=== PATIENT | female | born 1940 | race Native Hawaiian/Other Pacific Islander ===

== ENCOUNTER 2016-10-02 11:45 | Observation (INO) | payer OTHER, BC ==
[~2016-10-02] VITALS: Ht 154.9 cm; Wt 62.6 kg
[~2016-10-02 11:45] MED LIST: AMLO2.5T PO; ASA LOW DOSE81 MG PO; BENICAR HCT1 TA2 PO; BYSTOLIC5 MG PO; CALCIUM600 M1 PO; CENTRUM SILVER ULTRA PO; LIPITOR40 MG PO; PRAS5TAB PO; SIMV40TA57 PO; TEMA15CA19 PO; VALS160T PO
[2016-10-02 14:22] LABS: PLATELET COUNT 398 K/uL (152-353)
[2016-10-02 14:43] LABS: PARTIAL THROMBOPLASTIN TIME 28.1 SECONDS (24.5-33.6)
[2016-10-02 14:47] LABS: POTASSIUM 3.8 mmol/L (3.6-5.2)
[2016-10-02 14:57] VITALS: BP 121/43; TEMP 97.6; Ht 154.9 cm; Wt 62.6 kg
[2016-10-02 16:00] VITALS: BP 118/44; TEMP 98.5
[2016-10-02 18:56] VITALS: BP 129/49; TEMP 98.3
[2016-10-02] MEDS ORDERED: AMLO2.5T PO (19:17)
[2016-10-03 00:17] VITALS: BP 90/40; TEMP 98.3
[2016-10-03 04:00] VITALS: BP 90/44; TEMP 98.5
[2016-10-03 04:31] LABS: PLATELET COUNT 308 K/uL (152-353)
[2016-10-03 05:00] LABS: POTASSIUM 3.4 mmol/L (3.6-5.2); SODIUM 137 mmol/L (136-145)
[2016-10-03 08:00] VITALS: BP 122/60; TEMP 98.4
[2016-10-03 12:00] VITALS: BP 135/45; TEMP 98.8
[2016-10-03 16:00] VITALS: BP 140/59; TEMP 97.7
[2016-10-03 20:24] VITALS: BP 135/46; TEMP 98
[2016-10-04 00:27] VITALS: BP 106/32; TEMP 98.3
[2016-10-04 04:00] VITALS: BP 116/36; TEMP 98
[2016-10-04 06:28] LABS: PLATELET COUNT 344 K/uL (152-353)
[2016-10-04 08:00] VITALS: BP 135/45; TEMP 98.1
[2016-10-04 08:10] LABS: POTASSIUM 3.4 mmol/L (3.6-5.2); SODIUM 138 mmol/L (136-145)
[2016-10-04 11:08] VITALS: BP 130/42; TEMP 98.4
== END 2016-10-04 16:26 | disposition home or self-care (01) ==
LOC: MED/SURG 11:45
PROVIDERS: ADMIT Family Medicine
DX: K52.89 Other specified noninfective gastroenteritis and colitis (principal); R19.7 Diarrhea, unspecified; E86.0 Dehydration; K57.30 Diverticulosis of large intestine without perforation or abscess without bleeding; K43.9 Ventral hernia without obstruction or gangrene; R10.9 Unspecified abdominal pain
CPT/HCPCS: 36415; 36591; 80048; 80053; 81000; 82272; 82550; 82553; 83880; 84484; 85027; 85610; 85730; 87045; 87088; 87205; 87328; 87329; 87493; 87798; 87899; 93005; 94760; 96365; 96366; 96372; 99220; G0378; G0379; J1650; Q9963

== ENCOUNTER 2016-11-11 10:30 | Outpatient (CLI) | payer OTHER, BC | END 2016-11-11 11:30 | disposition home or self-care (01) | LOC: MAMMO 10:30 | DX: Z12.31 Encounter for screening mammogram for malignant neoplasm of breast (principal) | CPT/HCPCS: G0202-TC ==

== ENCOUNTER 2017-09-20 08:50 | Inpatient (IN) | payer OTHER, BC ==
[~2017-09-20] VITALS: Ht 154.9 cm; Wt 65.8 kg
[2017-09-20 09:37] LABS: PLATELET COUNT 269 K/uL (152-353)
[2017-09-20 09:48] LABS: POTASSIUM 3.5 mmol/L (3.6-5.2)
[2017-09-20 20:38] VITALS: BP 122/47; TEMP 97.8; Ht 154.9 cm; Wt 65.8 kg
[2017-09-21] VITALS: BP 120/46; TEMP 98.4
[2017-09-21 03:46] LABS: PLATELET COUNT 253 K/uL (152-353)
[2017-09-21 04:00] VITALS: BP 122/42; TEMP 98.7
[2017-09-21 04:06] LABS: POTASSIUM 4.5 mmol/L (3.6-5.2); SODIUM 132 mmol/L (136-145)
[2017-09-21 08:10] VITALS: BP 127/45; TEMP 98.4
[2017-09-21 11:56] VITALS: BP 103/45; TEMP 98.8
[2017-09-21 16:00] VITALS: BP 130/51; TEMP 100.1
[2017-09-21 20:00] VITALS: BP 122/52; TEMP 98.1
[2017-09-21 20:10] LABS: PLATELET COUNT 240 K/uL (152-353)
[2017-09-22] VITALS: BP 114/43; TEMP 98.9
[2017-09-22 04:00] VITALS: BP 123/53; TEMP 99.4
[2017-09-22 06:04] LABS: POTASSIUM 3.9 mmol/L (3.6-5.2)
[2017-09-22 07:52] VITALS: BP 123/56; TEMP 98.6
[2017-09-22 11:52] VITALS: BP 101/52; TEMP 98.4
[2017-09-22 16:00] VITALS: BP 156/60; TEMP 98.5
== END 2017-09-22 16:35 | disposition home or self-care (01) | DRG 354 ==
LOC: OR 08:50 → MED/SURG 15:00
PROVIDERS: ADMIT Student in an Organized Health Care Education/Training Program
PROC: 0WUF0JZ Supplement Abdominal Wall with Synthetic Substitute, Open Approach (ICD-10-PCS; principal; 2017-09-20)
DX: K43.2 Incisional hernia without obstruction or gangrene (principal); J98.11 Atelectasis; I10 Essential (primary) hypertension; E78.00 Pure hypercholesterolemia, unspecified; E86.0 Dehydration; D64.89 Other specified anemias; I25.10 Atherosclerotic heart disease of native coronary artery without angina pectoris; R73.9 Hyperglycemia, unspecified; K21.9 Gastro-esophageal reflux disease without esophagitis
CPT/HCPCS: 36415; 80048; 80053; 82550; 82553; 83735; 84484; 85027; 94760; 96365; 96366; 96372; C1713; C1729; J0330; J0690; J1100; J1170; J1644; J2001; J2250; J2270; J2405; J2704; J3010; J3490; S0028

== ENCOUNTER 2017-12-05 11:28 | Outpatient (CLI) | payer OTHER, BC | END 2017-12-05 21:49 | disposition home or self-care (01) | LOC: MAMMO 11:28 | DX: Z12.31 Encounter for screening mammogram for malignant neoplasm of breast (principal) ==

== ENCOUNTER 2018-09-12 12:46 | Observation (INO) | payer OTHER, BC ==
[~2018-09-12] VITALS: Ht 154.9 cm; Wt 58.3 kg
[2018-09-12 14:04] LABS: PLATELET COUNT 246 K/uL (152-353)
[2018-09-12 14:28] VITALS: BP 115/55; TEMP 97.9; Ht 154.9 cm; Wt 58.3 kg
[2018-09-12] MEDS ORDERED: LIPITOR40 MG PO (14:39)
[2018-09-12 16:06] VITALS: BP 141/53; TEMP 98.3
[2018-09-12 20:00] VITALS: BP 149/51; TEMP 98.1
[2018-09-13 00:15] VITALS: BP 100/50; TEMP 98.5
[2018-09-13 04:00] VITALS: BP 102/47; TEMP 98.8
[2018-09-13 06:02] LABS: PLATELET COUNT 226 K/uL (152-353)
[2018-09-13 06:28] LABS: POTASSIUM 3.2 mmol/L (3.6-5.2)
[2018-09-13 08:00] VITALS: BP 100/47; TEMP 98.2
[2018-09-13 09:24] LABS: PLATELET COUNT 237 K/uL (152-353)
[2018-09-13 09:42] LABS: POTASSIUM 2.6 mmol/L (3.6-5.2)
[2018-09-13 12:03] VITALS: BP 106/37; TEMP 98.6
[2018-09-13 16:24] VITALS: BP 101/37; TEMP 97.9
[2018-09-13 20:00] VITALS: TEMP 98.2
[2018-09-14] VITALS: BP 91/32; TEMP 98.3
[2018-09-14 03:51] VITALS: BP 90/33; TEMP 98.6
[2018-09-14 08:06] VITALS: BP 119/541; TEMP 98.2
[2018-09-14 10:45] LABS: PLATELET COUNT 269 K/uL (152-353)
[2018-09-14 12:05] VITALS: BP 143/55; TEMP 98.5
== END 2018-09-14 12:40 | disposition home or self-care (01) ==
LOC: MED/SURG 12:46
PROVIDERS: ADMIT Family Medicine
DX: J18.9 Pneumonia, unspecified organism (principal); E86.0 Dehydration; I95.1 Orthostatic hypotension; E87.6 Hypokalemia; I10 Essential (primary) hypertension; M19.90 Unspecified osteoarthritis, unspecified site; H91.93 Unspecified hearing loss, bilateral; R71.0 Precipitous drop in hematocrit
CPT/HCPCS: 36415; 80053; 82607; 82728; 82746; 83540; 83550; 83735; 83880; 84100; 84132; 85027; 87040; 87077; 87185; 87186; 87205; 87502; 93005; 94640; 94664; 94668; 94760; 96365; 96366; 96367; 99220; G0378; G0379; J0456; J0696; J3475; J3480

== ENCOUNTER 2019-07-31 10:20 | Outpatient (CLI) | payer OTHER, BC | END 2019-07-31 20:20 | disposition home or self-care (01) | LOC: RAD 10:20 | DX: M54.14 Radiculopathy, thoracic region (principal) ==

== ENCOUNTER 2020-12-02 20:59 | Observation (INO) | payer BC ==
[2020-12-02] VITALS (7 sets, daily range): BP systolic 107–135; BP diastolic 34–76; TEMP 98.5
[~2020-12-02] VITALS: Ht 154.9 cm; Wt 56.9 kg
[2020-12-02 21:55] LABS: PLATELET COUNT 328 K/uL (152-353); POTASSIUM 4.5 mmol/L (3.6-5.2)
[2020-12-03] VITALS (37 sets, daily range): BP systolic 91–153; BP diastolic 28–76; TEMP 97.6–99.8; Ht 154.9 cm; Wt 56.9 kg
--- NOTE | 2020-12-03 07:15 | NUR ---
PT WAS ADMITTED FROM ER . PT ADMITTED WITH ANEMIA. PT IS FULL CODE STATUS. PT STATES SHE IS EASED OF PAIN AT PRESENT. POSITIONED IN BED. CM WIH SINUS BRADYCARDIA. MONITORING BP. SPOKE WITH PT'S DAUGHTER CRISTINA AND REPORTED TO HER THAT PT DID SHAHRZAD DOWN TO 35 AFTER AMBULATING TO BED FROM BATHROOM. RATE WAS 35 BUT RECOVERED QUICKLY. ADMISSION ASSESSMENT COMPLETED.
--- NOTE | 2020-12-03 08:30 | NUR ---
PT'S CALLED TO SPEAK TO PT. PT
--- NOTE | 2020-12-03 09:23 | NUR ---
DR DENT AT BEDSIDE MAKING ROUNDS AND TALKING TO PT. PT VERBAL NO DISTRESS NOTED. PT VERBALZIED UNDERSTANDING OF NEEDING BLOOD AT THIS TIME AND AGREED TO HAVE 2 UNITS.
[2020-12-03] MEDS ORDERED: AMLODIPINE BESYLATE PO (09:30)
[2020-12-03] MEDS ORDERED: LIPITOR40 MG PO (09:32)
[2020-12-03] MEDS ORDERED: BYSTOLIC2.5 MG PO (09:32)
[2020-12-03] MEDS ORDERED: BENICAR HCT1 TAB PO (09:33)
--- NOTE | 2020-12-03 09:34 | NUR ---
PT'S HOME MED LIST OBTAINED FROM [facility] IN [place]. SPOKE WITH PHARM THERE CONCERNING HOME MEDS. HOME MEDS UPDATED IN [place] AND DR DENT INFORMED
--- NOTE | 2020-12-03 12:35 | NUR ---
CLARIFICATION; PER PATIENT IS TO HAVE LOVENOX ORDERED DUE TO ELEVATED TROPONINS. I CALLED PHARMACY AND TOLD EYAL TO TAKE MEDICATION OFF HOLD.
--- NOTE | 2020-12-03 13:40 | NUR ---
1ST UNIT OF BLOOD COMPLETED AT THIS TIME. NO ACUTE DISTRESS NOTED. PATIENT TOLERATED WELL.
--- NOTE | 2020-12-03 14:11 | NUR ---
SECOND UNIT OF PRBC'S STARTED PER MD ORDERS AT THIS [facility]. PT TOELRATED FIRST UNIT OF PRBC'S WNL. NO PROBLEMS NOTED
--- NOTE | 2020-12-03 18:03 | NUR ---
VERIFIED WITH PT PCP WAS KRISTIAN GIBBS PER PT.
--- NOTE | 2020-12-03 20:25 | NUR ---
AWAKE WATCHING TV WITH NO S/S OF PAIN OR DISTRESS NOTED, ALERT AND ORIENTED DENIES ANY NEEDS OR PROBLEMS/PAIN, RESP RATE NORMAL AND NONLABORED, ON ROOM AIR WITH SAT OF 95%, VITALS BEING MONITORED, IT BUSINESS PROCESS ARCHITECT IN USE WITH REGULAR RATE 60-70s, 20G IV LOCK INTACT TO R AC WITH NO PROBLEMS NOTED TO SITE, BS+, LUNGS CLEAR TO AUSCULTATION, ENCOURAGED TO CALL NEEDED, RAILS UP, BED IN LOW POSITION, WILL MONITOR CLOSELY.
--- NOTE | 2020-12-03 22:20 | NUR ---
RESTING WITH EYES CLOSED, NO S/S OF PAIN OR DISTRESS NOTED, VITALS BEING MONITORED, PREPARING BOX TENDER IN USE, RAILS UP, BED IN LOW POSITION, WILL MONITOR CLOSELY.
[2020-12-04] VITALS (8 sets, daily range): BP systolic 104–136; BP diastolic 40–61; TEMP 98.6–98.9
--- NOTE | 2020-12-04 00:05 | NUR ---
PT RESTING IN POSITION OF COMFORT WITH EYES CLOSED, NO S/S OF PAIN OR DISTRESS NOTED, RESP RATE NONLABORED, ON ROOM AIR, VITALS BEING MONITORED, BIZTALK SOFTWARE DEVELOPER IN USE WITH RATE IN 60s REGULAR SR, IV LOCK INTACT TO R AC. AROUSES BRIEFLY AND DENIES ANY PROBLEMS OR NEEDS, WILL MONITOR, RAILS UP, BED IN LOW POSITION, ENCOURAGED TO CALL NEEDED.
--- NOTE | 2020-12-04 02:02 | NUR ---
RESTING IN POSITION OF COMFORT WITH EYES CLOSED, NO S/S OF PAIN OR DISTRESS NOTED, RESP RATE NONLABORED, ON ROOM AIR, VITALS BEING MONITORED/STABLE, HOSPICE NURSE IN USE WITH RATE IN LOW 60s, WILL MONITOR CLOSELY, RAILS UP, BED IN LOW POSITION.
--- NOTE | 2020-12-04 04:10 | NUR ---
CONTINUES TO REST IN BED WITH EYES CLOSED, NO S/S OF PAIN OR DISTRESS NOTED, RESP RATE 14 NONLABORED, WALL CLEANER IN USE WITH BRADYCARDIA NOTED IN MID 50s, VITALS BEING MONITORED Q 1 HOUR, ON ROOM AIR, IV LOCK INTACT, WILL MONITOR CLOSELY, RAILS UP, BED IN LOW POSITION.
[2020-12-04 05:09] LABS: PLATELET COUNT 307 K/uL (152-353)
[2020-12-04 05:29] LABS: POTASSIUM 4.2 mmol/L (3.6-5.2)
--- NOTE | 2020-12-04 06:24 | NUR ---
PT NOW AWAKE USED BSC WITH NO ACUTE DISTRESS NOTED. RESP RATE NONLABORED, ON ROOM AIR, VITALS BEING MONITORED, IV INTACT TO R AC WITH NO PROBLEMS NOTED TO SITE, RN WOUND IN USE. WILL MONITOR, RAILS UP, BED IN LOW POSITION, ENCOURAGED TO CALL NEEDED.
--- NOTE | 2020-12-04 07:49 | NUR ---
DR DENT AT MAKING ROUNDS. DR DENT EXPLAINING TO PT HER RECENT LABS AND NEW MEDS TO BE DISCHARGED ON
[2020-12-04] MEDS ORDERED: FERROUS SULF324 MG PO (08:17)
[2020-12-04] MEDS ORDERED: DOCU100C10 PO (09:36)
--- NOTE | 2020-12-04 10:25 | NUR ---
DISCHARGE INSTRCTIONS GIVEN AND EXPLAINED TO PT. PT VERBALZIED UNDERSTANDING RX SENT TO [facility] PER DR DENT
--- NOTE | 2020-12-04 10:30 | NUR ---
PT LEFT VIA WC WITH . NO DISTRESS OR PROBOLEMS AT TIME OF DISCHARGE. PT LEFT IN PERSONAL CLOTHES AND BLUE HOUSECOAT AND WHITE BEDROOM SHOES.
== END 2020-12-04 10:30 | disposition home or self-care (01) ==
LOC: ED 20:59 → PCU 12-03 01:30
PROVIDERS: Internal Medicine Endocrinology, Diabetes & Metabolism; ADMIT Family Medicine; ATTEND Internal Medicine
PROC: 30233N1 Transfusion of Nonautologous Red Blood Cells into Peripheral Vein, Percutaneous Approach (ICD-10-PCS; principal; 2020-12-03)
DX: R07.89 Other chest pain (principal); D64.9 Anemia, unspecified; I25.10 Atherosclerotic heart disease of native coronary artery without angina pectoris; E78.49 Other hyperlipidemia; R53.83 Other fatigue
CPT/HCPCS: 36415; 80048; 80053; 81000; 82272; 82550; 82553; 83540; 84484; 85014; 85018; 85027; 86850; 86900; 86901; 86922; 87635; 93005; 99220; 99285; G0378; J1650; P9016; U0003

== ENCOUNTER 2021-01-14 08:03 | Outpatient (CLI) | payer BC ==
[~2021-01-14 08:03] MED LIST changes: +AMLODIPINE BESYLATE PO; +BENICAR HCT1 TAB PO; +BYSTOLIC2.5 MG PO; +DOCU100C10 PO; +FERROUS SULF324 MG PO
[2021-01-14 08:49] LABS: PLATELET COUNT 324 K/uL (152-353)
[2021-01-14 09:26] LABS: POTASSIUM 3.9 mmol/L (3.6-5.2)
== END 2021-01-14 21:26 | disposition home or self-care (01) ==
LOC: LABW 08:03
PROVIDERS: ATTEND Internal Medicine
DX: I12.9 Hypertensive chronic kidney disease with stage 1 through stage 4 chronic kidney disease, or unspecified chronic kidney disease (principal); R53.83 Other fatigue; D64.9 Anemia, unspecified
CPT/HCPCS: 36415; 80053; 80061; 81000; 82043; 82330; 82570; 82607; 82728; 82746; 83540; 83550; 83735; 84100; 84155; 84439; 84443; 85027; 85652; 86038

== ENCOUNTER 2022-09-02 07:35 | Emergency (ER) | payer BC ==
[~2022-09-02] VITALS: Ht 154.9 cm; Wt 50.8 kg
[2022-09-02 08:23] LABS: PLATELET COUNT 301 K/uL (152-353)
[2022-09-02 08:26] LABS: POTASSIUM 4.3 mmol/L (3.6-5.2)
[2022-09-02 13:20] VITALS: BP 105/48; TEMP 98
== END 2022-09-02 13:45 | disposition short-term general hospital (02) ==
LOC: ED 07:35
PROVIDERS: Emergency Medicine Emergency Medical Services
PROC: 30233N1 Transfusion of Nonautologous Red Blood Cells into Peripheral Vein, Percutaneous Approach (ICD-10-PCS; principal; 2022-09-02)
DX: K92.2 Gastrointestinal hemorrhage, unspecified (principal); I95.9 Hypotension, unspecified; D64.89 Other specified anemias; Z11.52 Encounter for screening for COVID-19; W18.39XA Other fall on same level, initial encounter; Y92.89 Other specified places as the place of occurrence of the external cause
CPT/HCPCS: 36430; 80053; 81002; 82550; 83735; 84484; 85027; 85610; 86850; 86900; 86901; 86922; 87502; 87635; 93005; 96360; 96361; 96365; 99285; J1265; J3490; P9016; U0003